=== PATIENT | female | born 1960 | race Caucasian/White ===

== ENCOUNTER 2017-10-15 14:29 | Outpatient (CLI) | payer OTHER | END 2017-10-15 14:40 | disposition home or self-care (01) | LOC: RAD 14:29 | DX: J45.998 Other asthma (principal) ==

== ENCOUNTER → 2017-10-17 06:53 | Outpatient (CLI) | payer OTHER | END | disposition home or self-care (01) | LOC: LAB 06:53 | DX: E55.9 Vitamin D deficiency, unspecified (principal); Z12.11 Encounter for screening for malignant neoplasm of colon; E11.65 Type 2 diabetes mellitus with hyperglycemia; D68.8 Other specified coagulation defects; E03.8 Other specified hypothyroidism; E72.11 Homocystinuria; D64.89 Other specified anemias ==

== ENCOUNTER 2017-10-17 07:37 | Outpatient (CLI) | payer OTHER | END 2017-10-17 07:45 | disposition home or self-care (01) | LOC: MAMO-SONO 07:37 | DX: Z12.31 Encounter for screening mammogram for malignant neoplasm of breast (principal) ==

== ENCOUNTER 2017-10-18 13:57 | Outpatient (CLI) | payer OTHER | END 2017-10-18 13:59 | disposition home or self-care (01) | LOC: LAB 13:57 | DX: E55.9 Vitamin D deficiency, unspecified (principal); Z12.11 Encounter for screening for malignant neoplasm of colon; E11.65 Type 2 diabetes mellitus with hyperglycemia; D68.8 Other specified coagulation defects; E72.11 Homocystinuria; E03.8 Other specified hypothyroidism; D64.89 Other specified anemias; M05.2 Rheumatoid vasculitis with rheumatoid arthritis ==

== ENCOUNTER 2018-01-24 07:22 | Outpatient (CLI) | payer OTHER | END 2018-01-24 07:36 | disposition home or self-care (01) | LOC: LAB 07:22 | DX: J45.998 Other asthma (principal); E03.8 Other specified hypothyroidism; D68.8 Other specified coagulation defects; D64.89 Other specified anemias ==

== ENCOUNTER 2018-01-29 07:23 | Outpatient (CLI) | payer OTHER | END 2018-01-29 07:24 | disposition home or self-care (01) | LOC: SONOGRAMA 07:23 | DX: E03.8 Other specified hypothyroidism (principal) ==

== ENCOUNTER 2018-02-15 12:32 | Outpatient (CLI) | payer OTHER | END 2018-02-15 12:42 | disposition home or self-care (01) | LOC: NUCLEAR 12:32 | DX: M81.0 Age-related osteoporosis without current pathological fracture (principal) ==

== ENCOUNTER → 2018-03-08 07:24 | Outpatient (CLI) | payer OTHER | END | disposition home or self-care (01) | LOC: LAB 07:24 | DX: D64.89 Other specified anemias (principal); E55.9 Vitamin D deficiency, unspecified; E03.8 Other specified hypothyroidism; D68.8 Other specified coagulation defects; E78.2 Mixed hyperlipidemia; E11.65 Type 2 diabetes mellitus with hyperglycemia ==

== ENCOUNTER 2018-04-19 08:33 | Outpatient (CLI) | payer OTHER | END 2018-04-19 08:50 | disposition home or self-care (01) | LOC: LAB 08:33 | DX: D68.8 Other specified coagulation defects (principal); E03.8 Other specified hypothyroidism ==

== ENCOUNTER 2018-04-23 11:37 | Outpatient (CLI) | payer OTHER | END 2018-04-23 11:39 | disposition home or self-care (01) | LOC: RAD 11:37 | DX: M48.46XA Fatigue fracture of vertebra, lumbar region, initial encounter for fracture (principal) ==

== ENCOUNTER 2021-04-05 08:23 | Outpatient (CLI) | payer OTHER | END 2021-04-05 08:31 | disposition home or self-care (01) | LOC: TOM 08:23 | PROVIDERS: ATTEND Specialist | DX: K42.0 Umbilical hernia with obstruction, without gangrene (principal) ==

== ENCOUNTER 2024-10-13 07:21 | Outpatient (CLI) | payer OTHER ==
[2024-10-14 13:08] LABS: ANTI CARDIO IGA < 9 APL U/mL (0-11); ANTI CARDIO IGG < 9 GPL U/mL (0-14); ANTI CARDIO IGM 15 MPL U/mL (0-12); HOMOCYSTEINE 11.2 umol/L (0.0-17.2)
[2024-10-15 15:12] LABS: PROTEIN C ANTIGEN 116 % (60-150)
== END 2024-10-13 07:22 | disposition home or self-care (01) ==
LOC: LAB 07:21
PROVIDERS: ATTEND Internal Medicine Hematology & Oncology
DX: I10 Essential (primary) hypertension (principal); M81.0 Age-related osteoporosis without current pathological fracture; E03.8 Other specified hypothyroidism; E06.3 Autoimmune thyroiditis; E78.2 Mixed hyperlipidemia; Z83.2 Family history of diseases of the blood and blood-forming organs and certain disorders involving the immune mechanism; D68.59 Other primary thrombophilia; D68.61 Antiphospholipid syndrome; D68.312 Antiphospholipid antibody with hemorrhagic disorder; E72.12 Methylenetetrahydrofolate reductase deficiency

== ENCOUNTER 2024-12-09 07:17 | Outpatient (CLI) | payer OTHER | END 2024-12-09 07:20 | disposition home or self-care (01) | LOC: SONOGRAMA 07:17 | PROVIDERS: ATTEND Specialist | DX: K75.81 Nonalcoholic steatohepatitis (NASH) (principal) ==